=== PATIENT | female | born 2005 | race Caucasian/White ===

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

== ENCOUNTER → 2025-02-12 | Outpatient (CLI) | payer BC ==
[2025-02-12 10:47] LABS: T4, Free (Free Thyroxine) 0.83 ng/dL (0.83-1.43)
== END | disposition home or self-care (01) ==
LOC: LABWHC1 07:32
PROVIDERS: ATTEND Internal Medicine
DX: R73.03 Prediabetes (principal); R63.5 Abnormal weight gain
CPT/HCPCS: 36415; 82533; 82565; 83036; 84439; 84443

== ENCOUNTER → 2025-02-15 | Outpatient (CLI) | payer BC ==
[2025-02-16 02:36] LABS: Alternaria alternata IgE <0.10 kU/L; Aspergillus fumagatus IgE <0.10 kU/L; Dog Dander IgE <0.10 kU/L; Oak IgE 0.14 kU/L; Red Top (Bentgrass) IgE <0.10 kU/L
[2025-02-16 02:39] LABS: Birch IgE <0.10 kU/L; Cat Epith & Dander IgE <0.10 kU/L; Cladosporian herbarum IgE <0.10 kU/L; Dermato. farinae IgE 7.03 kU/L; Elm IgE 0.12 kU/L; Maple (Box Elder) IgE 0.36 kU/L; Ragweed,Common IgE 0.14 kU/L
== END | disposition home or self-care (01) ==
LOC: LABWHC1 14:55
PROVIDERS: ATTEND Otolaryngology
DX: J35.01 Chronic tonsillitis (principal); Z90.89 Acquired absence of other organs
CPT/HCPCS: 36415; 82785; 86003